=== PATIENT | female | born 1970 | race American Indian/Alaskan Native ===

== ENCOUNTER 2019-02-16 13:36 | Emergency (ER) | payer OTHER ==
[~2019-02-16] VITALS: Ht 180.3 cm; Wt 90.7 kg
[2019-02-16] MEDS ORDERED: GABA300 PO (13:54)
[2019-02-16] MEDS ORDERED: NASAL MIST30 ML (13:54)
[2019-02-16] MEDS ORDERED: Prinivil10 MG PO (13:54)
[2019-02-16] MEDS ORDERED: Voltaren100 GM TOP (14:58)
== END 2019-02-16 15:08 | disposition home or self-care (01) ==
LOC: ER 13:36
DX: M25.461 Effusion, right knee (principal); Z79.899 Other long term (current) drug therapy
CPT/HCPCS: 73564; 99283-25

== ENCOUNTER 2024-02-17 11:26 | Day surgery (SDC) | payer OTHER ==
[2024-02-15 09:47] LABS: BASOPHILS ABSOLUTE AUTO 0.03 K/mm3 (0.00-0.23); BASOPHILS PERCENT AUTO 0 % (0-2); EOSINOPHILS ABSOLUTE AUTO 0.18 K/mm3 (0.00-0.68); EOSINOPHILS PERCENT AUTO 2 % (0-6); Hematocrit 42.4 % (33.0-51.0); Hemoglobin 14.1 g/dL (11.5-16.0); IMMATURE GRAN ABSOLUTE AUTO 0.02 K/mm3 (0.00-0.10); IMMATURE GRAN PERCENT AUTO 0 % (0-1); LYMPHOCYTES ABSOLUTE AUTO 2.31 K/mm3 (0.84-5.20); LYMPHOCYTES PERCENT AUTO 29 % (21-46); MONOCYTES ABSOLUTE AUTO 0.56 K/mm3 (0.16-1.47); MONOCYTES PERCENT AUTO 7 % (4-13); Mean Corpuscular HGB 33.1 pg (26.0-34.0); Mean Corpuscular HGB Conc 33.3 g/dL (31.5-36.5); Mean Corpuscular Volume 100 fL (80-100); Mean Platelet Volume 10.3 fL (9.1-12.4); NEUTROPHILS ABSOLUTE AUTO 4.78 K/mm3 (1.96-9.15); NEUTROPHILS PERCENT AUTO 61 % (41-73); Platelet Count 273 K/mm3 (150-400); RDW Coefficient Variation 13.7 % (11.7-14.2); RDW Standard Deviation 50.7 fL (35.1-46.3); Red Blood Cell Count 4.26 M/mm3 (3.80-5.20); White Blood Cell Count 7.88 K/mm3 (4.00-11.30)
[2024-02-15 11:06] LABS: Bun/Creatinine Ratio 26.8 (12.0-20.0); Calcium, Blood 8.9 mg/dL (8.5-10.1); Creatinine, Blood 0.56 mg/dL (0.40-1.00); Potassium, Blood 4.1 mmol/L (3.5-5.5)
[2024-02-17] VITALS (17 sets, daily range): BP systolic 95–141; BP diastolic 57–96
[~2024-02-17] VITALS: Ht 180.3 cm; Wt 85.9 kg
[~2024-02-17 11:26] MED LIST: GABA300 PO; NASAL MIST30 ML; Prinivil10 MG PO; Voltaren100 GM TOP
[2024-02-17] MEDS ORDERED: Lactated Ringer's 1,000 ML IV SCH ×2 (12:20→16:20)
[2024-02-17] MEDS ORDERED: CeFAZolin Sodium 2,000 MG in NS 100 ML IV SCH ×2 (12:20→20:00)
--- NOTE | 2024-02-17 13:23 | NUR ---
Ambulatory in Day Surgery. History, Chart, Medications and Allergies reviewed before start of procedure. Lungs clear T/O to Auscultation. Patient confirms NPO status and agrees with scheduled surgery. Pre-Op teaching done. Pt verbalizes understanding. PT BELONGINGS PLACED UNDERNEATH GURNEY FOR SAFEKEEPING. PT GLASSES TAKEN TO PACU FOR SAFEKEEPING.
[2024-02-17] MEDS ORDERED: Bupivacaine 0.5% Inj 10 ML Vial ONE (13:42)
[2024-02-17] MEDS ORDERED: FentaNYL Citrate 50 MCG/ML 2 ML Injection ONE (14:03)
[2024-02-17] MEDS ORDERED: propofoL 20 ML IV ONE (14:03)
[2024-02-17] MEDS ORDERED: HYDROmorphone HCl/Pf 1MG SYR ONE ×3 (14:28→17:03)
[2024-02-17] MEDS ORDERED: Atropine Sulfate 0.4 MG/1 ML Vial ONE (14:46)
[2024-02-17] MEDS ORDERED: Rocuronium Bromide 10 MG/ML 5ML Injection IV ONE (14:46)
[2024-02-17] MEDS ORDERED: Dexamethasone Sod Phos 10 MG/ML 1ML VIAL ONE (15:21)
[2024-02-17] MEDS ORDERED: Metoclopramide HCl 5MG / ML 2ML Vial ONE (15:21)
[2024-02-17] MEDS ORDERED: Ondansetron HCl 2 MG / ML 2ML Vial ONE (15:21)
[2024-02-17] MEDS ORDERED: Sugammadex Sodium 200 MG/2ML SDV (100 MG/ML) ONE (16:19)
[2024-02-17] MEDS ORDERED: Simethicone 80 MG Chew PO PRN (16:20)
[2024-02-17] MEDS ORDERED: Naloxone HCl 0.4MG / ML 1ML Vial IV PRN (16:20)
[2024-02-17] MEDS ORDERED: Promethazine HCl 25 MG Tab PO PRN (16:25)
[2024-02-17] MEDS ORDERED: Ondansetron HCl 2 MG / ML 2ML Vial IV PRN (16:25)
[2024-02-17] MEDS ORDERED: Promethazine HCl 12.5 MG Supp PR PRN (16:25)
[2024-02-17] MEDS ORDERED: Ondansetron 4 MG TAB PO PRN (16:25)
[2024-02-17] MEDS ORDERED: OxyCODONE 5 mg/Acetamin 325 mg TABLET PO PRN ×2 (16:25→19:00)
[2024-02-17] MEDS ORDERED: Ketorolac Tromethamine 30mg Vial IV PRN (16:35)
[2024-02-17] MEDS ORDERED: HYDROmorphone HCl/Pf 1MG SYR IV PRN (16:40)
--- NOTE | 2024-02-17 18:34 | NUR ---
1749 ARRIVED TO ROOM, DROWSY. PT REPORTS SOME LOWER ABD CRAMPING BUT STATES NOT BAD HER PERIODS. ABD WITH 4 SURGICAL SITES SEALED WITH GLUE, NO DRAINAGE. DENIES NAUSEA. PAS IN PLACE. PT REPORTS SOME TINGLING TO BLE WHICH IS AT HER BASELINE. NO VAGINAL DRAINAGE
--- NOTE | 2024-02-17 18:36 | NUR ---
FAMILY MEMBER AT BEDSIDE. PT LYING WITH EYES CLOSED. UNLABORED RESP. BIOX AT 96% ON 1 LITER
[2024-02-18 02:55] VITALS: BP 111/65
[2024-02-18 05:01] LABS: BASOPHILS ABSOLUTE AUTO 0.01 K/mm3 (0.00-0.23); BASOPHILS PERCENT AUTO 0 % (0-2); EOSINOPHILS PERCENT AUTO 0 % (0-6); Hematocrit 36.6 % (33.0-51.0); Hemoglobin 12.2 g/dL (11.5-16.0); IMMATURE GRAN ABSOLUTE AUTO 0.05 K/mm3 (0.00-0.10); IMMATURE GRAN PERCENT AUTO 0 % (0-1); LYMPHOCYTES PERCENT AUTO 11 % (21-46); MONOCYTES ABSOLUTE AUTO 0.72 K/mm3 (0.16-1.47); MONOCYTES PERCENT AUTO 6 % (4-13); Mean Corpuscular HGB 33.1 pg (26.0-34.0); Mean Corpuscular HGB Conc 33.3 g/dL (31.5-36.5); Mean Corpuscular Volume 99 fL (80-100); Mean Platelet Volume 10.4 fL (9.1-12.4); NEUTROPHILS ABSOLUTE AUTO 10.16 K/mm3 (1.96-9.15); NEUTROPHILS PERCENT AUTO 83 % (41-73); Platelet Count 248 K/mm3 (150-400); RDW Coefficient Variation 13.9 % (11.7-14.2); RDW Standard Deviation 51.2 fL (35.1-46.3); Red Blood Cell Count 3.69 M/mm3 (3.80-5.20); White Blood Cell Count 12.24 K/mm3 (4.00-11.30)
--- NOTE | 2024-02-18 07:19 | NUR ---
SUMMARY PT A/O AMBULATORY FOR BRP.VOIDING WITHOUT DIFF AT THIS TIME.SCANT VAG SPOTTING,LIGHT BRUISING AT LAP SITES.TOLERATING PO.REPORTS 2 PERCOCET EFFECTIVE FOR PAIN CONTROL.
[2024-02-18 07:32] VITALS: BP 114/72
[2024-02-18] MEDS ORDERED: Estradiol 1 MG Tab PO SCH (09:00)
[2024-02-18] MEDS ORDERED: ESTR2 PO (11:48)
[2024-02-18] MEDS ORDERED: PROMETHAZINE12.5 M1 PO (11:49)
[2024-02-18] MEDS ORDERED: Percocet 5-3251 EACH PO (11:49)
[2024-02-18] MEDS ORDERED: SIME80CH PO (11:50)
--- NOTE | 2024-02-18 12:21 | NUR ---
1218 discharge instructions reviewed with patient and her and both verbalize understanding. pt reports pain is adequately controlled. mild nausea at times which pt states resolves with zofran. scant serosanguinous vaginal bleeding. abd incisions with glue intact and no drainage. meme po food and fluids. pt verbalizes understanding of dc instructions
== END 2024-02-18 12:18 | disposition home or self-care (01) ==
LOC: ORSCMMR 11:26 → ORD 13:00 → SURS 17:32 → ORSCMMR 22:54
PROVIDERS: Obstetrics & Gynecology
PROC: 0U5F4ZZ Destruction of Cul-de-sac, Percutaneous Endoscopic Approach (ICD-10-PCS; principal; 2024-02-17 13:00)
PROC: 0UT7FZZ Resection of Bilateral Fallopian Tubes, Via Natural or Artificial Opening With Percutaneous Endoscopic Assistance (ICD-10-PCS; principal; 2024-02-17 13:00)
PROC: 0UT2FZZ Resection of Bilateral Ovaries, Via Natural or Artificial Opening With Percutaneous Endoscopic Assistance (ICD-10-PCS; principal; 2024-02-17 13:00)
PROC: 0UT9FZZ Resection of Uterus, Via Natural or Artificial Opening With Percutaneous Endoscopic Assistance (ICD-10-PCS; principal; 2024-02-17 13:00)
DX: D25.9 Leiomyoma of uterus, unspecified (principal); N80.329 Endometriosis of the posterior cul-de-sac, unspecified depth; N94.6 Dysmenorrhea, unspecified; R10.2 Pelvic and perineal pain; N73.6 Female pelvic peritoneal adhesions (postinfective); I10 Essential (primary) hypertension; F17.210 Nicotine dependence, cigarettes, uncomplicated; Z79.899 Other long term (current) drug therapy
CPT/HCPCS: 36415; 80048; 84702; 85025; 86850; 86900; 86901; 88307; 94762; A9270; J0461; J0690; J1100; J1170; J1885; J2405; J2704; J2765; J3010; J7120

== ENCOUNTER 2024-09-11 22:28 | Emergency (ER) | payer OTHER ==
[~2024-09-11] VITALS: Ht 180.3 cm; Wt 95.2 kg
[~2024-09-11 22:28] MED LIST changes: +ESTR2 PO; +PROMETHAZINE12.5 M1 PO; +Percocet 5-3251 EACH PO; +SIME80CH PO
[2024-09-11] MEDS ORDERED: DiphenhydrAMINE HCL 25 MG Cap PO ONE (22:55)
[2024-09-11 23:00] VITALS: BP 128/80
== END 2024-09-11 23:20 | disposition home or self-care (01) ==
LOC: ER 22:28
DX: L50.9 Urticaria, unspecified (principal); Z88.6 Allergy status to analgesic agent; Z79.899 Other long term (current) drug therapy
CPT/HCPCS: 99282; A9270